=== PATIENT | female | born 1995 | race Caucasian/White ===

== ENCOUNTER 2016-10-06 04:33 | Emergency (ER) | payer SELFPAY ==
[~2016-10-06] VITALS: Ht 160 cm; Wt 48.0 kg
[2016-10-06 04:43] VITALS: BP 111/65; PULSE 92; RESP 18; TEMP 98.3; TEMP 98.9; O2SAT 95
[2016-10-06] MEDS ORDERED: MOXIFLOXACIN 0.5% OPHT SOLN 3 ML BTL EACH EYE ONE (05:45)
--- NOTE | 2016-10-06 05:50 | PD ---
HPI Chief Complaint: Eye Problems/Injury Time Seen by Provider: 05:41 Travel History International Travel<30 days: No Contact w/Intl Traveler<30days: No Traveled to known affect area: No History of Present Illness HPI 21-year-old white female presents to emergency department with complains of eye pain, discharge and decreased vision. The patient states that she wears contacts. She states that she had not removed her contacts and nearly 6 months. She states that she typically leaves them in for appeared of at least 3 months at a time. Approximately 1-2 days ago she started getting increasing pain and irritation in her left eye. She noticed drainage coming from her left eye with severe worsening today. She states now she has near inability to open her left eye due to pain. She has blurred vision in both eyes. She has mucous drainage from the left eye and tearing from both eyes. Positive photophobia. She states the pain is severe. She admits to drinking alcohol and smoking marijuana. She is up-to-date with immunizations. She removed her contacts this evening. [facility] Past Medical History Narrative Medical Anxiety, depression, endometriosis Anxiety: Yes Depression: Yes Diminished Hearing: No Reproductive: Yes (endometriosis) Immunizations Current: Yes Tetanus Vaccination: < 5 Years ?: Unknown LMP: 10/06/16 Past Surgical History Narrative Surgical Laparoscopy Social History Alcohol Use: Yes (binges every 2 months for 1-2 weeks. ) Tobacco Use: Yes (1 pack every 2 days) Substance Use: Yes (Hx Meth Abuse per pt.) Allergies-Medications (Allergen,Severity, Reaction): Coded Allergies: No Known Allergies (Unverified , 06/25/16) Reported Meds & Prescriptions Reported Meds & Active Scripts Active No Active Prescriptions or Reported Medications Review of Systems Except as stated in HPI: all other systems reviewed are Neg General / Constitutional: No: Fever, Chills Eyes: Positive: Blurred Vision, Photophobia, Drainage, Redness, Foreign Body Sensation, Pain, Tearing, Visual changes, No: Diploplia HENT: No: Headaches, Neck Pain Cardiovascular: No: Chest Pain or Discomfort, Palpitations Respiratory: No: Cough, Shortness of Breath Gastrointestinal: No: Nausea, Vomiting Genitourinary: No: Frequency, Dysuria (weight but if there is a nurse coming in here why They watched the patient admits that would make me aneurysm patient to be is her sleeping in with a leash and let him sleep.) Physical Exam Narrative GENERAL: This is a well-nourished, well-developed patient, in no apparent distress. SKIN: No rashes, ecchymoses or lesions. Warm and dry. Patient has picking of her face. HEAD: Atraumatic. Normocephalic. EYES: Pupils equal and round and reactive to light and accommodation. Pupils are somewhat dilated at approximately 7 mm. Both eyes are extremely injected. Left upper and lower eyelids are somewhat swollen. She has clear tearing from the right eye and mucoid drainage from the left eye. Ophthaine is instilled in both eyes whenever pain. Direct visualization reveals what appears to be 2 corneal ulcers in the left I over the central vision. Fluorescein stain of the right eye reveals a small area of punctate uptake centrally. The left eye confirms uptake over the area scene with direct visualization to confirm ulceration. Lids are flipped and no foreign body seen. Patient does not have any glasses with her. She cannot see the eye chart. She can see fingers at a few feet. EARS: Clear runny nose NOSE: Nasal turbinates appear normal. THROAT: Mucosa pink and moist. Airway patent. NECK: Trachea midline. supple, moves head freely. LUNGS: Clear to auscultation. CV: Regular in rhythm. ABDOMEN: Soft nontender. EXT: No clubbing cyanosis or edema. Data Data Last Documented VS Vital Signs Date Time Temp Pulse Resp B/P Pulse Ox O2 Delivery O2 Flow Rate FiO2 10/06/16 04:43 98.3 92 18 111/65 95 Orders Moxifloxacin 0.5% Opht Soln (Vigamox 0.5 (10/06/16 05:45) [facility] Medical Decision Making Medical Screen Exam Complete: Yes Emergency Medical Condition: Yes Medical Record Reviewed: Yes Differential Diagnosis MDM: High Differential diagnoses: Acute conjunctivitis (bacterial, viral, allergic, traumatic), glaucoma, iritis, traumatic globe injury, foreign body, corneal abrasion, corneal ulcer, diabetic retinopathy, photokeratitis, herpes keratitis , CMV retinitis Narrative Course Patient appears to have corneal ulcers in her left eye and possibly developing an ulcer in her right eye. The patient will be given Vigamox drops. She'll apply one drop in both eyes every 15 minutes for the first hour and then 1 drop in each eye every hour and follow-up with Dr. Neri the geotechnical engineer on-call this morning. I've spoken with Dr. Neri who has agreed to see the patient this morning. She would like the patient to call the office at 8:00 in the morning. This has been relayed to the patient. She is aware that she is responsible to call at 8: 00 for an appointment today. The patient is given Vigamox to continue 1 drop in each eye until she sees the eye doctor. No contacts. This is bilateral corneal ulcers Diagnosis Primary Impression: Corneal ulcer of both eyes Referrals: Heavenly Neri MD 1 day Call the office today at [address] Neri will see you sometime today. Patient Instructions: General Instructions Additional Instructions: Vigamox 1 drop in each eye every hour. Follow-up with Dr. Neri in her office today. Call at 8:00 for an appointment today. Med/Other Pt SpecificInfo: Prescription(s) given Scripts No Active Prescriptions or Reported Meds Disposition: 01 DISCHARGE HOME Condition: Stable Lázaro Melton Oct 06, 2016 05:50
== END 2016-10-06 07:25 | disposition home or self-care (01) ==
LOC: NEPB 04:33
DX: H16.003 Unspecified corneal ulcer, bilateral (principal); H53.149 Visual discomfort, unspecified; H53.8 Other visual disturbances; F17.210 Nicotine dependence, cigarettes, uncomplicated
CPT/HCPCS: 99283

== ENCOUNTER 2017-03-30 04:01 | Emergency (ER) | payer OTHER ==
[~2017-03-30] VITALS: Ht 160 cm; Wt 50.0 kg
[2017-03-30 04:16] VITALS: BP 131/73; PULSE 132; RESP 24; TEMP 98; O2SAT 98
[2017-03-30] MEDS ORDERED: LORazepam 2 MG/ML VIAL IV PUSH ONE ×2 (04:30→05:00)
[2017-03-30] MEDS ORDERED: SODIUM CHLOR 0.9% 1000 ML INJ 1,000 ML IV ONE ×2 (04:30→05:30)
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
[2017-03-30 04:34] LABS: AUTOMATED NEUTROPHIL # 9.6 TH/MM3 (1.8-7.7); BASOPHIL # 0.1 TH/MM3 (0-0.2); BASOPHIL % 0.5 % (0.0-2.0); EOSINOPHIL # 0.1 TH/MM3 (0-0.4); EOSINOPHIL % 0.5 % (0.0-4.0); HEMO FLAGS DIFF FINAL; LYMPH % 30.4 % (9.0-44.0); LYMPHOCYTE # 4.7 TH/MM3 (1.0-4.8); MEAN CELL VOLUME 95.9 FL (80.0-100.0); MEAN CORPUSCULAR HGB CONC 33.4 % (32.0-36.0); MONO % 6.1 % (0.0-8.0); NEUT % 62.5 % (16.0-70.0); PLATELET COUNT 374 TH/MM3 (150-450); WHITE BLOOD COUNT 15.4 TH/MM3 (4.0-11.0)
[2017-03-30 04:58] LABS: ALT (GPT) 26 U/L (10-53)
[2017-03-30 05:00] LABS: ANION GAP 8 MEQ/L (5-15); AST (GOT) 24 U/L (15-37); BLOOD UREA NITROGEN 11 MG/DL (7-18); CHLORIDE 109 MEQ/L (98-107); GLOMERULAR FILTRATION RATE 74 ML/MIN (>89); POTASSIUM 3.8 MEQ/L (3.5-5.1); SODIUM (NA) 142 MEQ/L (136-145)
[2017-03-30 05:03] LABS: ALCOHOL 269 MG/DL (0-5); ALKALINE PHOSPHATASE 71 U/L (45-117); CREATINE KINASE 214 U/L (26-192); TOTAL BILIRUBIN ADULT 0.3 MG/DL (0.2-1.0)
[2017-03-30] MEDS ORDERED: HALOPERIDOL LACTATE 5 MG/ML AMP IM ONE (05:15)
[2017-03-30 05:19] LABS: CKMB 1.3 NG/ML (0.5-3.6)
[2017-03-30 05:38] VITALS: BP 115/64; PULSE 118; RESP 24; O2SAT 98
--- NOTE | 2017-03-30 08:18 | EKG ---
Date Performed: 03/30/2017 Time Performed: 05:35:44 PTAGE: 22 years EKG: SINUS TACHYCARDIA BORDERLINE RIGHT AXIS DEVIATION NONSPECIFIC T-WAVE ABNORMALITY ABNORMAL E CG NO PREVIOUS TRACING DOCTOR: Hany Davison Interpretating Date/Time 03/30/2017 08:16:35
[2017-03-30 08:22] VITALS: BP 107/52; PULSE 99; RESP 14; O2SAT 96
== END 2017-03-30 13:59 | disposition home or self-care (01) ==
LOC: NEPE 04:01
DX: F19.94 Other psychoactive substance use, unspecified with psychoactive substance-induced mood disorder (principal); F10.929 Alcohol use, unspecified with intoxication, unspecified; F17.290 Nicotine dependence, other tobacco product, uncomplicated; F12.10 Cannabis abuse, uncomplicated
CPT/HCPCS: 80053; 80307; 82550; 82552; 85025; 93005; 96361; 96372; 96374; 96375; 99284; J1630; J2060; J7030

== ENCOUNTER 2017-09-20 00:55 | Emergency (ER) | payer SELFPAY ==
[~2017-09-20] VITALS: Ht 160 cm; Wt 50.4 kg
[2017-09-20 01:22] VITALS: BP 126/76; PULSE 75; RESP 18; TEMP 98.2; O2SAT 98
== END 2017-09-20 02:40 | disposition left against medical advice (07) ==
LOC: PHED 00:55
DX: R05 Cough (principal); R11.2 Nausea with vomiting, unspecified
CPT/HCPCS: 99281